=== PATIENT | female | born 1970 | race Caucasian/White ===

== ENCOUNTER 2019-11-02 20:57 | Emergency (ER) | payer MEDICAID ==
[~2019-11-02] VITALS: Ht 157.5 cm; Wt 51.3 kg
[2019-11-02 21:07] VITALS: BP 123/76
--- NOTE | 2019-11-02 21:10 | NUR ---
TO LOBBY A/W BED AMBULATORY
--- NOTE | 2019-11-02 21:25 | NUR ---
49 Y/O FEMALE PRESENTS WITH EPIGASTRIC PAIN/VOMITING/NAUSEA BEGINNING YEST MORNING. DENIES FEVER/ CHILLS. ABD SOFT/ NON DISTENDED/ NON TENDER. NO MASSES FELT UPON PALPATION. BOWEL SOUNDS NORMO ACTIVE IN ALL QUADRANTS. CAP REFILL<3. SKIN COOL, DRY, INTACT. DENIES SOB/CP. RESP EVEN AND UNLABORED. LUNG SOUNDS CLEAR IN BILAT LOBES. AAOX3. ABLE TO AMBULATE TO BED. NO PMH NKA
--- NOTE | 2019-11-02 23:04 | NUR ---
PT AMBULATED TO BED 01
[2019-11-02] MEDS ORDERED: NACL 0.9% 1,000 ML IV ONE (23:25)
[2019-11-02] MEDS ORDERED: ONDANSETRON 4 MG/2 ML VIAL IVP ONE (23:25)
[2019-11-02] MEDS ORDERED: KETOROLAC 30 MG/ML VIAL IVP ONE (23:25)
--- NOTE | 2019-11-02 23:52 | NUR ---
PT RETURN FROM CT
[2019-11-02 23:53] LABS: APPEARANCE,URINE SL CLOUDY (CLEAR); BILIRUBIN,URINE NEGATIVE (NEGATIVE); BLOOD, URINE NEGATIVE (NEGATIVE); COLOR,URINE YELLOW (YELLOW); LEUKOCYTE ESTERASE ,URINE NEGATIVE (NEGATIVE); NITRITE, URINE NEGATIVE (NEGATIVE); UGLUCOSE NEGATIVE (NEGATIVE)
[2019-11-03 00:47] LABS: BASOPHILS % (AUTO) 0.2 % (0.0-2.0); EOSINOPHILS % (AUTO) 0.3 % (0.0-4.0); HEMOGLOBIN 7.9 g/dL (12.0-16.0); LYMPHOCYTES # (AUTO) 0.7 K/uL (2.5-16.5); MEAN CORPUSCULAR HEMOGLOBIN 20 pg (27-31); MEAN CORPUSCULAR HGB CONC 32 g/dL (33-37); MEAN CORPUSCULAR VOLUME 62.4 fL (80-94); MONOCYTES # (AUTO) 0.3 K/uL (0.8-1.0); MONOCYTES % (AUTO) 3.9 % (1.7-9.3); NEUTROPHILS # (AUTO) 7.1 K/uL (1.8-7.7); NEUTROPHILS % (AUTO) 87.5 % (42.2-75.2); PLATELET COUNT (AUTO) 317 K/uL (140-450); RED BLOOD CELL COUNT(AUTO) 4.01 MIL/uL (4.20-5.40); RED CELL DISTRIBUTION WIDTH 18.9 % (11.6-13.7); WHITE BLOOD COUNT (AUTO) 8.1 K/uL (4.8-10.8)
[2019-11-03 01:04] LABS: ALBUMIN 3.9 g/dL (3.4-5.0); ANION GAP 11.1 (8-16); CARBON DIOXIDE 28.2 mmol/L (21-32); CREATININE 0.6 mg/dL (0.6-1.3); POTASSIUM 3.3 mmol/L (3.5-5.1); TOTAL BILIRUBIN 0.6 mg/dL (0.0-1.0)
[2019-11-03] MEDS ORDERED: POTASSIUM CHLORIDE 10 MEQ TABER PO ONE (01:05)
[2019-11-03 01:23] LABS: LYMPHOCYTES % (AUTO) 8.1 % (20.5-51.1)
[2019-11-03 01:36] VITALS: BP 110/79
--- NOTE | 2019-11-05 13:32 | NUR ---
Late entry. Confirmed with RN that 0.9 NS IV completed at 0110
== END 2019-11-03 01:37 | disposition home or self-care (01) ==
LOC: MED 20:57
DX: E87.6 Hypokalemia (principal); D64.89 Other specified anemias; R51 Headache; R11.2 Nausea with vomiting, unspecified
CPT/HCPCS: 36415; 74176; 80053; 81003; 81025; 83690; 85025; 96361; 96374; 96375; 99284; J1885; J2405; J7030

== ENCOUNTER 2020-03-10 18:19 | Emergency (ER) | payer MEDICAID, SELFPAY ==
[~2020-03-10] VITALS: Ht 147.3 cm; Wt 51.3 kg
[2020-03-10 18:27] VITALS: BP 122/63
--- NOTE | 2020-03-10 18:42 | NUR ---
COVID SWAB DONE.
--- NOTE | 2020-03-10 19:15 | NUR ---
Pt with no med hx presents ambulatory to ED, c/o fever/bodyaches, cough, headache, CP and SOB x8 days. Reports that she has had exposure to positive COVID contacts as her brother in law tested positive 9 days ago. Pt awake and alert, skin normal color warm and dry, rr even and unlabored.
[2020-03-10 19:41] VITALS: BP 122/72
--- NOTE | 2020-03-10 19:41 | NUR ---
Patient discharged with v/s stable. Written and verbal after care instructions given and explained. Patient alert, oriented and verbalized understanding of instructions. Ambulatory with steady gait. All questions addressed prior to discharge. ID band removed. Patient advised to follow up with PMD. Rx of promethazine given. Patient educated on indication of medication including possible reaction and side effects. Opportunity to ask questions provided and answered.
--- NOTE | 2020-03-12 20:33 | NUR ---
LAB GAVE PT COPY OF COVID-19 POSITIVE RESULT AND THE PT COPY FORWARDED TO THE [facility] RN.
== END 2020-03-10 19:41 | disposition home or self-care (01) ==
LOC: MED 18:19 → EEVIPCON 18:19 → MED 19:41
DX: U07.1 COVID-19 (principal); R50.9 Fever, unspecified; R05 Cough; M79.10 Myalgia, unspecified site
CPT/HCPCS: 71045; 99284; U0003